=== PATIENT | female | born 1950 | race Asian ===

== ENCOUNTER 2022-07-11 11:06 | Emergency (ER) | payer OTHER ==
[~2022-07-11] VITALS: Ht 142.2 cm; Wt 43.1 kg
[2022-07-11] MEDS ORDERED: NAMENDA5 MG (11:47)
[2022-07-11] MEDS ORDERED: LEXAPRO5 MG (11:47)
[2022-07-11] MEDS ORDERED: QUETIAPINE FUM400 M1 (11:47)
[2022-07-11] MEDS ORDERED: ZESTRIL10 M1 (11:47)
[2022-07-11] MEDS ORDERED: ATORVASTATIN CA20 MG (11:48)
[2022-07-11] MEDS ORDERED: TOPROL XL50 M1 (11:48)
[2022-07-11] MEDS ORDERED: ARICEPT5 MG (11:48)
== END 2022-07-11 16:14 | disposition home or self-care (01) ==
LOC: ER 11:06
DX: B34.9 Viral infection, unspecified (principal); E11.9 Type 2 diabetes mellitus without complications; Z79.84 Long term (current) use of oral hypoglycemic drugs; I10 Essential (primary) hypertension; Z20.822 Contact with and (suspected) exposure to COVID-19